=== PATIENT | male | born 1950 | race Caucasian/White ===

== ENCOUNTER 2018-02-25 09:35 | Day surgery (SDC) | payer MEDICARE, MEDICAID ==
[~2018-02-25 09:35] MED LIST: DOCU100C23 PO; FAMO-1 PO; GABA-532 PO; GEMF600T4 PO; GLIM4TAB79 PO; INSU100V12 SQ; LEVO100T46 PO; LISI40TA4 PO; METO100T14 PO; METO50TA17 PO; NOR5T PO; PARO-44 PO; PARO40TA PO; SPIR25TA5 PO; TRAM50TA2 PO; TRAZ-89 PO
[2018-02-25] MEDS ORDERED: LIDOcaine 2% 5ml jelly ONE (11:20)
[2018-02-25] MEDS ORDERED: MELA3TAB PO (13:22)
[2018-02-25] MEDS ORDERED: FLO0.4C PO (13:22)
[2018-02-25] MEDS ORDERED: SERT100T PO (13:22)
== END 2018-02-25 12:05 | disposition home or self-care (01) ==
LOC: WOUND CARE 09:35
PROVIDERS: ATTEND Surgery
DX: E11.622 Type 2 diabetes mellitus with other skin ulcer (principal); L97.822 Non-pressure chronic ulcer of other part of left lower leg with fat layer exposed; E11.65 Type 2 diabetes mellitus with hyperglycemia; I87.2 Venous insufficiency (chronic) (peripheral); B18.2 Chronic viral hepatitis C; F03.90 Unspecified dementia, unspecified severity, without behavioral disturbance, psychotic disturbance, mood disturbance, and anxiety
CPT/HCPCS: 11042; 11045; 36416; 82948; 93922; A6021; A6206; A6213

== ENCOUNTER 2018-03-03 10:24 | Day surgery (SDC) | payer MEDICARE, MEDICAID ==
[~2018-03-03 10:24] MED LIST changes: +FLO0.4C PO; +MELA3TAB PO; +SERT100T PO
[2018-03-03] MEDS ORDERED: LIDOcaine/PRILOcaine 5gm cream TP ONE (11:54)
== END 2018-03-03 12:45 | disposition home or self-care (01) ==
LOC: WOUND CARE 10:24
PROVIDERS: ATTEND Surgery
DX: E11.622 Type 2 diabetes mellitus with other skin ulcer (principal); L97.822 Non-pressure chronic ulcer of other part of left lower leg with fat layer exposed; E11.65 Type 2 diabetes mellitus with hyperglycemia; I87.2 Venous insufficiency (chronic) (peripheral); B18.2 Chronic viral hepatitis C; E78.5 Hyperlipidemia, unspecified; F03.90 Unspecified dementia, unspecified severity, without behavioral disturbance, psychotic disturbance, mood disturbance, and anxiety; F17.200 Nicotine dependence, unspecified, uncomplicated; F10.10 Alcohol abuse, uncomplicated
CPT/HCPCS: 11042; 36416; 82948; 87070; 87075; 87077; 87102; 87176; A6021; A6206; A6213

== ENCOUNTER 2018-03-19 09:54 | Day surgery (SDC) | payer MEDICARE, MEDICAID ==
[~2018-03-19 09:54] MED LIST changes: +DOCU-273 PO; -DOCU100C23 PO
[2018-03-19] MEDS ORDERED: LIDOcaine/PRILOcaine 5gm cream TP ONE (11:05)
== END 2018-03-19 11:55 | disposition home or self-care (01) ==
LOC: WOUND CARE 09:54
PROVIDERS: ATTEND Surgery
DX: E11.622 Type 2 diabetes mellitus with other skin ulcer (principal); L97.822 Non-pressure chronic ulcer of other part of left lower leg with fat layer exposed; E11.65 Type 2 diabetes mellitus with hyperglycemia; I87.2 Venous insufficiency (chronic) (peripheral); B18.2 Chronic viral hepatitis C; E78.5 Hyperlipidemia, unspecified; F03.90 Unspecified dementia, unspecified severity, without behavioral disturbance, psychotic disturbance, mood disturbance, and anxiety; F17.200 Nicotine dependence, unspecified, uncomplicated; F10.10 Alcohol abuse, uncomplicated
CPT/HCPCS: 15271; 36416; 82948; A6209; A6222; Q4131; A6250

== ENCOUNTER 2018-03-26 09:55 | Day surgery (SDC) | payer MEDICARE, MEDICAID | END 2018-03-26 11:06 | disposition home or self-care (01) | LOC: WOUND CARE 09:55 | PROVIDERS: ATTEND Surgery | DX: E11.622 Type 2 diabetes mellitus with other skin ulcer (principal); L97.822 Non-pressure chronic ulcer of other part of left lower leg with fat layer exposed; E11.65 Type 2 diabetes mellitus with hyperglycemia; I87.2 Venous insufficiency (chronic) (peripheral); B18.2 Chronic viral hepatitis C; E78.5 Hyperlipidemia, unspecified; F03.90 Unspecified dementia, unspecified severity, without behavioral disturbance, psychotic disturbance, mood disturbance, and anxiety; F17.200 Nicotine dependence, unspecified, uncomplicated; F10.10 Alcohol abuse, uncomplicated | CPT/HCPCS: 15271; 36416; 82948; A6209; A6222; A6446; Q4131; A6250 ==

== ENCOUNTER 2018-04-02 09:58 | Day surgery (SDC) | payer MEDICARE, MEDICAID ==
[2018-04-02] MEDS ORDERED: LIDOcaine/PRILOcaine 5gm cream TP ONE (10:44)
== END 2018-04-02 11:53 | disposition home or self-care (01) ==
LOC: WOUND CARE 09:58
PROVIDERS: ATTEND Surgery
DX: E11.622 Type 2 diabetes mellitus with other skin ulcer (principal); L97.822 Non-pressure chronic ulcer of other part of left lower leg with fat layer exposed; L97.221 Non-pressure chronic ulcer of left calf limited to breakdown of skin; E11.65 Type 2 diabetes mellitus with hyperglycemia; I87.2 Venous insufficiency (chronic) (peripheral); B18.2 Chronic viral hepatitis C; E78.5 Hyperlipidemia, unspecified; F03.90 Unspecified dementia, unspecified severity, without behavioral disturbance, psychotic disturbance, mood disturbance, and anxiety; F17.200 Nicotine dependence, unspecified, uncomplicated; F10.10 Alcohol abuse, uncomplicated
CPT/HCPCS: 15271; 36416; 82948; A6021; A6206; A6209; A6222; A6446; Q4131; A6250

== ENCOUNTER 2018-04-09 10:05 | Day surgery (SDC) | payer MEDICARE, MEDICAID ==
[2018-04-09] MEDS ORDERED: LIDOcaine/PRILOcaine 5gm cream TP ONE (11:11)
== END 2018-04-09 12:33 | disposition home or self-care (01) ==
LOC: WOUND CARE 10:05
PROVIDERS: ATTEND Surgery
DX: E11.622 Type 2 diabetes mellitus with other skin ulcer (principal); L97.821 Non-pressure chronic ulcer of other part of left lower leg limited to breakdown of skin; L97.221 Non-pressure chronic ulcer of left calf limited to breakdown of skin; E11.65 Type 2 diabetes mellitus with hyperglycemia; I87.2 Venous insufficiency (chronic) (peripheral); B18.2 Chronic viral hepatitis C; E78.5 Hyperlipidemia, unspecified; F03.90 Unspecified dementia, unspecified severity, without behavioral disturbance, psychotic disturbance, mood disturbance, and anxiety; F17.200 Nicotine dependence, unspecified, uncomplicated; F10.10 Alcohol abuse, uncomplicated
CPT/HCPCS: 36416; 82948; 97597; A6021; A6209; A6222; A6446

== ENCOUNTER 2018-04-16 10:11 | Day surgery (SDC) | payer MEDICARE, MEDICAID ==
[2018-04-16] MEDS ORDERED: LIDOcaine/PRILOcaine 5gm cream TP ONE (10:38)
== END 2018-04-16 11:16 | disposition home or self-care (01) ==
LOC: WOUND CARE 10:11
PROVIDERS: ATTEND Surgery
DX: E11.622 Type 2 diabetes mellitus with other skin ulcer (principal); L97.822 Non-pressure chronic ulcer of other part of left lower leg with fat layer exposed; L97.221 Non-pressure chronic ulcer of left calf limited to breakdown of skin; E11.65 Type 2 diabetes mellitus with hyperglycemia; I87.2 Venous insufficiency (chronic) (peripheral); B18.2 Chronic viral hepatitis C; E78.5 Hyperlipidemia, unspecified; F03.90 Unspecified dementia, unspecified severity, without behavioral disturbance, psychotic disturbance, mood disturbance, and anxiety; F17.200 Nicotine dependence, unspecified, uncomplicated; F10.10 Alcohol abuse, uncomplicated
CPT/HCPCS: 15271; 36416; 82948; A6021; A6206; A6209; A6222; A6446; Q4131; A6250

== ENCOUNTER 2018-04-23 09:55 | Day surgery (SDC) | payer MEDICARE, MEDICAID | END 2018-04-23 11:08 | disposition home or self-care (01) | LOC: WOUND CARE 09:55 | PROVIDERS: ATTEND Surgery | DX: E11.622 Type 2 diabetes mellitus with other skin ulcer (principal); L97.822 Non-pressure chronic ulcer of other part of left lower leg with fat layer exposed; L97.221 Non-pressure chronic ulcer of left calf limited to breakdown of skin; E11.65 Type 2 diabetes mellitus with hyperglycemia; I87.2 Venous insufficiency (chronic) (peripheral); B18.2 Chronic viral hepatitis C; E78.5 Hyperlipidemia, unspecified; F03.90 Unspecified dementia, unspecified severity, without behavioral disturbance, psychotic disturbance, mood disturbance, and anxiety; F17.200 Nicotine dependence, unspecified, uncomplicated; F10.10 Alcohol abuse, uncomplicated | CPT/HCPCS: 36416; 82948; 97597; A6021; A6206; A6209; A6446 ==

== ENCOUNTER 2018-04-30 10:04 | Day surgery (SDC) | payer MEDICARE, MEDICAID ==
[2018-04-30] MEDS ORDERED: LIDOcaine/PRILOcaine 5gm cream TP ONE (10:43)
== END 2018-04-30 11:57 | disposition home or self-care (01) ==
LOC: WOUND CARE 10:04
PROVIDERS: ATTEND Surgery
DX: E11.622 Type 2 diabetes mellitus with other skin ulcer (principal); L97.822 Non-pressure chronic ulcer of other part of left lower leg with fat layer exposed; L97.221 Non-pressure chronic ulcer of left calf limited to breakdown of skin; E11.65 Type 2 diabetes mellitus with hyperglycemia; I87.2 Venous insufficiency (chronic) (peripheral); B18.2 Chronic viral hepatitis C; E78.5 Hyperlipidemia, unspecified; F03.90 Unspecified dementia, unspecified severity, without behavioral disturbance, psychotic disturbance, mood disturbance, and anxiety; F17.200 Nicotine dependence, unspecified, uncomplicated; F10.10 Alcohol abuse, uncomplicated
CPT/HCPCS: 15271; 36416; 82948; A6209; A6222; Q4131; A6250

== ENCOUNTER 2018-05-07 10:00 | Outpatient (CLI) | payer MEDICARE, MEDICAID ==
[2018-05-07] MEDS ORDERED: LIDOcaine/PRILOcaine 5gm cream TP ONE (10:30)
== END 2018-05-07 11:33 | disposition home or self-care (01) ==
LOC: WOUND CARE 10:00 → EDSTATUS 10:00 → WOUND CARE 11:33
PROVIDERS: ATTEND Surgery
DX: E11.622 Type 2 diabetes mellitus with other skin ulcer (principal); L97.822 Non-pressure chronic ulcer of other part of left lower leg with fat layer exposed; L97.221 Non-pressure chronic ulcer of left calf limited to breakdown of skin; E11.65 Type 2 diabetes mellitus with hyperglycemia; I87.2 Venous insufficiency (chronic) (peripheral); B18.2 Chronic viral hepatitis C; E78.5 Hyperlipidemia, unspecified; F03.90 Unspecified dementia, unspecified severity, without behavioral disturbance, psychotic disturbance, mood disturbance, and anxiety; F17.200 Nicotine dependence, unspecified, uncomplicated; F10.10 Alcohol abuse, uncomplicated
CPT/HCPCS: 36416; 82948; 99215; A6021; A6206; A6213; A6446

== ENCOUNTER 2018-05-16 10:07 | Day surgery (SDC) | payer MEDICARE, MEDICAID ==
[2018-05-16] MEDS ORDERED: LIDOcaine/PRILOcaine 5gm cream TP ONE (11:07)
== END 2018-05-16 11:52 | disposition home or self-care (01) ==
LOC: WOUND CARE 10:07
PROVIDERS: ATTEND Surgery
DX: E11.622 Type 2 diabetes mellitus with other skin ulcer (principal); L97.822 Non-pressure chronic ulcer of other part of left lower leg with fat layer exposed; E11.65 Type 2 diabetes mellitus with hyperglycemia; I87.2 Venous insufficiency (chronic) (peripheral); B18.2 Chronic viral hepatitis C; E78.5 Hyperlipidemia, unspecified; F03.90 Unspecified dementia, unspecified severity, without behavioral disturbance, psychotic disturbance, mood disturbance, and anxiety; F17.200 Nicotine dependence, unspecified, uncomplicated; F10.10 Alcohol abuse, uncomplicated
CPT/HCPCS: 36416; 82948; 97597; A6021; A6206; A6213

== ENCOUNTER 2018-05-21 09:55 | Day surgery (SDC) | payer MEDICARE, MEDICAID ==
[2018-05-21] MEDS ORDERED: LIDOcaine/PRILOcaine 5gm cream TP ONE (10:34)
== END 2018-05-21 11:26 | disposition home or self-care (01) ==
LOC: WOUND CARE 09:55
PROVIDERS: ATTEND Surgery
DX: E11.622 Type 2 diabetes mellitus with other skin ulcer (principal); L97.822 Non-pressure chronic ulcer of other part of left lower leg with fat layer exposed; E11.65 Type 2 diabetes mellitus with hyperglycemia; I87.2 Venous insufficiency (chronic) (peripheral); B18.2 Chronic viral hepatitis C; E78.5 Hyperlipidemia, unspecified; F03.90 Unspecified dementia, unspecified severity, without behavioral disturbance, psychotic disturbance, mood disturbance, and anxiety; F17.200 Nicotine dependence, unspecified, uncomplicated; F10.10 Alcohol abuse, uncomplicated
CPT/HCPCS: 15271; 36416; 82948; A6209; A6222; Q4131; A6250

== ENCOUNTER 2018-05-28 10:08 | Outpatient (CLI) | payer MEDICARE, MEDICAID | END 2018-05-28 11:08 | disposition home or self-care (01) | LOC: WOUND CARE 10:08 | PROVIDERS: ATTEND Surgery | DX: E11.622 Type 2 diabetes mellitus with other skin ulcer (principal); L97.822 Non-pressure chronic ulcer of other part of left lower leg with fat layer exposed; E11.65 Type 2 diabetes mellitus with hyperglycemia; I87.2 Venous insufficiency (chronic) (peripheral); B18.2 Chronic viral hepatitis C; E78.5 Hyperlipidemia, unspecified; F03.90 Unspecified dementia, unspecified severity, without behavioral disturbance, psychotic disturbance, mood disturbance, and anxiety; F17.200 Nicotine dependence, unspecified, uncomplicated; F10.10 Alcohol abuse, uncomplicated | CPT/HCPCS: 36416; 82948; 99215; A6209; A6021; A6206 ==

== ENCOUNTER 2018-06-04 09:52 | Day surgery (SDC) | payer MEDICARE, MEDICAID ==
[2018-06-04] MEDS ORDERED: LIDOcaine/PRILOcaine 5gm cream TP ONE (11:30)
== END 2018-06-04 12:06 | disposition home or self-care (01) ==
LOC: WOUND CARE 09:52
PROVIDERS: ATTEND Surgery
DX: E11.622 Type 2 diabetes mellitus with other skin ulcer (principal); L97.822 Non-pressure chronic ulcer of other part of left lower leg with fat layer exposed; E11.65 Type 2 diabetes mellitus with hyperglycemia; I87.2 Venous insufficiency (chronic) (peripheral); B18.2 Chronic viral hepatitis C; E78.5 Hyperlipidemia, unspecified; F03.90 Unspecified dementia, unspecified severity, without behavioral disturbance, psychotic disturbance, mood disturbance, and anxiety; F17.200 Nicotine dependence, unspecified, uncomplicated; F10.10 Alcohol abuse, uncomplicated
CPT/HCPCS: 17250; 36416; 82948; 97597; A6021; A6206; A6213

== ENCOUNTER 2018-06-11 09:45 | Day surgery (SDC) | payer MEDICARE, MEDICAID ==
[2018-06-11] MEDS ORDERED: LIDOcaine/PRILOcaine 5gm cream TP ONE (11:37)
== END 2018-06-11 12:10 | disposition home or self-care (01) ==
LOC: WOUND CARE 09:45
PROVIDERS: ATTEND Surgery
DX: E11.622 Type 2 diabetes mellitus with other skin ulcer (principal); L97.822 Non-pressure chronic ulcer of other part of left lower leg with fat layer exposed; E11.65 Type 2 diabetes mellitus with hyperglycemia; I87.2 Venous insufficiency (chronic) (peripheral); B18.2 Chronic viral hepatitis C; E78.5 Hyperlipidemia, unspecified; F03.90 Unspecified dementia, unspecified severity, without behavioral disturbance, psychotic disturbance, mood disturbance, and anxiety; F17.200 Nicotine dependence, unspecified, uncomplicated; F10.10 Alcohol abuse, uncomplicated
CPT/HCPCS: 17250; A6209; A6021; A6206

== ENCOUNTER 2018-06-25 09:55 | Outpatient (CLI) | payer MEDICARE, MEDICAID ==
[~2018-06-25 09:55] MED LIST changes: -GEMF600T4 PO; +GEMF600T89 PO
== END 2018-06-25 12:00 | disposition home or self-care (01) ==
LOC: WOUND CARE 09:55 → EDSTATUS 10:00 → WOUND CARE 12:00
PROVIDERS: ATTEND Surgery
DX: E11.622 Type 2 diabetes mellitus with other skin ulcer (principal); L97.822 Non-pressure chronic ulcer of other part of left lower leg with fat layer exposed; E11.65 Type 2 diabetes mellitus with hyperglycemia; I87.2 Venous insufficiency (chronic) (peripheral); B18.2 Chronic viral hepatitis C; E78.5 Hyperlipidemia, unspecified; F03.90 Unspecified dementia, unspecified severity, without behavioral disturbance, psychotic disturbance, mood disturbance, and anxiety; F17.200 Nicotine dependence, unspecified, uncomplicated; F10.10 Alcohol abuse, uncomplicated
CPT/HCPCS: 36416; 82948; A6212; G0463

== ENCOUNTER 2018-10-23 11:05 | Emergency (ER) | payer MEDICARE, MEDICAID ==
[~2018-10-23] VITALS: Ht 208.3 cm; Wt 86.4 kg
[2018-10-23 11:17] VITALS: BP 127/73
[2018-10-27] MEDS ORDERED: INSU100V12 SQ (08:55)
[2018-10-27] MEDS ORDERED: LEVO150T PO (08:55)
[2018-10-27] MEDS ORDERED: ASPI-1265 PO (09:19)
[2018-10-27] MEDS ORDERED: CALC1CAP4 PO (09:19)
[2018-10-27] MEDS ORDERED: SERT100T PO (09:19)
[2018-10-27] MEDS ORDERED: LACT10SO PO (09:19)
[2018-10-27] MEDS ORDERED: MULT-1085 PO (09:19)
[2018-10-27] MEDS ORDERED: ARIP5TAB4 PO (09:19)
[2018-10-27] MEDS ORDERED: CHLO25CA10 PO (09:19)
[2018-10-27] MEDS ORDERED: CHOL2000 PO (09:19)
== END 2018-10-23 12:41 | disposition home or self-care (01) ==
LOC: ER 11:06
DX: M25.561 Pain in right knee (principal); M25.461 Effusion, right knee; I10 Essential (primary) hypertension; E11.9 Type 2 diabetes mellitus without complications; F12.90 Cannabis use, unspecified, uncomplicated; Z90.49 Acquired absence of other specified parts of digestive tract; Z98.890 Other specified postprocedural states; Z88.5 Allergy status to narcotic agent; Z79.4 Long term (current) use of insulin; Z79.899 Other long term (current) drug therapy; W01.0XXA Fall on same level from slipping, tripping and stumbling without subsequent striking against object, initial encounter; Y93.89 Activity, other specified; Y92.89 Other specified places as the place of occurrence of the external cause; Y99.8 Other external cause status
CPT/HCPCS: 73564; 99284

== ENCOUNTER 2018-10-27 07:24 | Inpatient (IN) | payer MEDICARE, MEDICAID | END 2018-11-01 12:30 | LOC: ORTHO 4S 10-30 18:54 → ER 07:24 → ORTHO 4S 13:05 | PROC: 0QS606Z Reposition Right Upper Femur with Intramedullary Internal Fixation Device, Open Approach (ICD-10-PCS; principal; 2018-10-28 11:37) | DX: S72.044A Nondisplaced fracture of base of neck of right femur, initial encounter for closed fracture (principal); N17.0 Acute kidney failure with tubular necrosis; E11.65 Type 2 diabetes mellitus with hyperglycemia ==

== ENCOUNTER 2018-11-22 17:11 | Inpatient (IN) | payer MEDICARE, MEDICAID | END 2018-11-25 13:25 | LOC: ER 17:11 → ORTHO 4S 22:09 | PROC: 0QS706Z Reposition Left Upper Femur with Intramedullary Internal Fixation Device, Open Approach (ICD-10-PCS; principal; 2018-11-23 08:14) | DX: S72.042A Displaced fracture of base of neck of left femur, initial encounter for closed fracture (principal); E43 Unspecified severe protein-calorie malnutrition; Z68.1 Body mass index [BMI] 19.9 or less, adult ==

== ENCOUNTER 2019-02-19 10:30 | Day surgery (SDC) | payer MEDICARE, MEDICAID ==
[~2019-02-19 10:30] MED LIST changes: +ARIP5TAB4 PO; +ASPI-1265 PO; +CALC1CAP4 PO; +CHOL2000 PO; +GLIM4TAB4 PO; -GLIM4TAB79 PO; +LACT10SO PO; -LEVO100T46 PO; +LEVO150T PO; -MELA3TAB PO; +MELA3TAB64 PO; +MULT-1085 PO; -PARO-44 PO; -PARO40TA PO; -TRAM50TA2 PO
[2019-02-19] MEDS ORDERED: LIDOcaine 2% 5ml jelly ONE ×2 (12:40→12:42)
[2019-02-19 13:22] LABS: BASOPHILS % (AUTO) 0.4 % (0-1); EOSINOPHILS # (AUTO) 0.1 X10'3 (0-0.9); EOSINOPHILS % (AUTO) 2.2 % (0-6); HEMATOCRIT 35.5 % (42.0-52.0); HEMOGLOBIN 11.8 g/dl (14.0-17.9); LYMPHOCYTES # (AUTO) 0.9 X10'3 (1.1-4.8); LYMPHOCYTES % (AUTO) 17.4 % (21-51); MEAN CORPUSCULAR HEMOGLOBIN 30.9 PG (27.0-31.0); MEAN CORPUSCULAR HGB CONC 33.2 g/dL (33.0-36.5); MEAN CORPUSCULAR VOLUME 93.1 FL (78-98); MEAN PLATELET VOLUME 8.9 FL (7.4-10.4); MONOCYTES # (AUTO) 0.4 X10'3 (0-0.9); MONOCYTES % (AUTO) 8.8 % (2-12); NEUTROPHILS # (AUTO) 3.5 X10'3 (1.8-7.7); NEUTROPHILS % (AUTO) 71.2 % (42-75); PLATELET COUNT 117 X10'3 (140-440); RED BLOOD COUNT 3.81 X10'6 (4.70-6.10); RED CELL DISTRIBUTION WIDTH 15.6 % (11.5-14.5); WHITE BLOOD COUNT 4.9 X10'3 (4.5-11.0)
[2019-02-19 13:41] LABS: ALANINE AMINOTRANSFERASE 26 U/L (12-78); ALBUMIN 2.9 G/DL (3.4-5.0); ALBUMIN/GLOBULIN RATIO 0.7 (1.1-1.5); ALKALINE PHOSPHATASE 187 IU/L (46-116); ANION GAP 9 (8-16); ASPARTATE AMINO TRANSFERASE 33 U/L (10-37); BILIRUBIN,TOTAL 0.5 MG/DL (0.1-1.0); BLOOD UREA NITROGEN 28 MG/DL (7-18); BUN/CREATININE RATIO 24.8 (5.4-32.0); CALCIUM 8.7 MG/DL (8.5-10.1); CHLORIDE 108 MMOL/L (99-107); CREATININE 1.13 MG/DL (0.60-1.10); GLUCOSE 159 MG/DL (70-104); POTASSIUM 3.6 MMOL/L (3.5-5.1); SODIUM 141 MMOL/L (135-145); TOTAL CARBON DIOXIDE 23.6 MMOL/L (24-32); TOTAL PROTEIN 7.2 G/DL (6.4-8.2); eGFR 65 ML/MIN
== END 2019-02-19 14:45 | disposition home or self-care (01) ==
LOC: WOUND CARE 10:30
PROVIDERS: ATTEND Surgery
DX: E11.622 Type 2 diabetes mellitus with other skin ulcer (principal); L97.822 Non-pressure chronic ulcer of other part of left lower leg with fat layer exposed; E11.65 Type 2 diabetes mellitus with hyperglycemia; I87.2 Venous insufficiency (chronic) (peripheral); B18.2 Chronic viral hepatitis C; E78.5 Hyperlipidemia, unspecified; F03.90 Unspecified dementia, unspecified severity, without behavioral disturbance, psychotic disturbance, mood disturbance, and anxiety; F17.200 Nicotine dependence, unspecified, uncomplicated; F10.10 Alcohol abuse, uncomplicated
CPT/HCPCS: 36415; 36416; 80053; 82948; 85025; 97597; A6209; A4663; A6021; A6154; A6446

== ENCOUNTER 2019-03-04 10:21 | Day surgery (SDC) | payer MEDICARE, MEDICAID ==
[2019-03-04] MEDS ORDERED: LIDOcaine 2% 5ml jelly ONE (11:16)
== END 2019-03-04 12:17 | disposition home or self-care (01) ==
LOC: WOUND CARE 10:21
PROVIDERS: ATTEND Surgery
DX: E11.621 Type 2 diabetes mellitus with foot ulcer (principal); L89.613 Pressure ulcer of right heel, stage 3; L97.411 Non-pressure chronic ulcer of right heel and midfoot limited to breakdown of skin; E11.65 Type 2 diabetes mellitus with hyperglycemia; I87.2 Venous insufficiency (chronic) (peripheral); B18.2 Chronic viral hepatitis C; E78.5 Hyperlipidemia, unspecified; F03.90 Unspecified dementia, unspecified severity, without behavioral disturbance, psychotic disturbance, mood disturbance, and anxiety; F17.200 Nicotine dependence, unspecified, uncomplicated; F10.10 Alcohol abuse, uncomplicated
CPT/HCPCS: 82948; 97597; A4663; A6021; A6154; A6212; A6446

== ENCOUNTER 2019-03-12 10:30 | Day surgery (SDC) | payer MEDICARE, MEDICAID ==
[2019-03-12] MEDS ORDERED: LIDOcaine 2% 5ml jelly ONE (12:06)
== END 2019-03-12 12:49 | disposition home or self-care (01) ==
LOC: WOUND CARE 10:30
PROVIDERS: ATTEND Surgery
DX: E11.621 Type 2 diabetes mellitus with foot ulcer (principal); L89.613 Pressure ulcer of right heel, stage 3; L97.411 Non-pressure chronic ulcer of right heel and midfoot limited to breakdown of skin; E11.65 Type 2 diabetes mellitus with hyperglycemia; I87.2 Venous insufficiency (chronic) (peripheral); B18.2 Chronic viral hepatitis C; E78.5 Hyperlipidemia, unspecified; F03.90 Unspecified dementia, unspecified severity, without behavioral disturbance, psychotic disturbance, mood disturbance, and anxiety; F17.200 Nicotine dependence, unspecified, uncomplicated; F10.10 Alcohol abuse, uncomplicated
CPT/HCPCS: 97597; A6209; A4663; A6021; A6154; A6446

== ENCOUNTER 2019-03-19 10:30 | Day surgery (SDC) | payer MEDICARE, MEDICAID | END 2019-03-19 12:36 | disposition home or self-care (01) | LOC: WOUND CARE 10:30 | PROVIDERS: ATTEND Surgery | DX: E11.621 Type 2 diabetes mellitus with foot ulcer (principal); L89.613 Pressure ulcer of right heel, stage 3; L97.411 Non-pressure chronic ulcer of right heel and midfoot limited to breakdown of skin; E11.65 Type 2 diabetes mellitus with hyperglycemia; E11.40 Type 2 diabetes mellitus with diabetic neuropathy, unspecified; I87.2 Venous insufficiency (chronic) (peripheral); B18.2 Chronic viral hepatitis C; E78.5 Hyperlipidemia, unspecified; F03.90 Unspecified dementia, unspecified severity, without behavioral disturbance, psychotic disturbance, mood disturbance, and anxiety; F17.200 Nicotine dependence, unspecified, uncomplicated; F10.10 Alcohol abuse, uncomplicated | CPT/HCPCS: 36416; 82948; 97597; A4663; A6021; A6154; A6212; A6446 ==

== ENCOUNTER 2019-03-26 10:25 | Day surgery (SDC) | payer MEDICARE, MEDICAID | END 2019-03-26 12:11 | disposition home or self-care (01) | LOC: WOUND CARE 10:25 | PROVIDERS: ATTEND Surgery | DX: E11.621 Type 2 diabetes mellitus with foot ulcer (principal); L89.613 Pressure ulcer of right heel, stage 3; L97.411 Non-pressure chronic ulcer of right heel and midfoot limited to breakdown of skin; E11.65 Type 2 diabetes mellitus with hyperglycemia; E11.40 Type 2 diabetes mellitus with diabetic neuropathy, unspecified; I87.2 Venous insufficiency (chronic) (peripheral); B18.2 Chronic viral hepatitis C; E78.5 Hyperlipidemia, unspecified; F03.90 Unspecified dementia, unspecified severity, without behavioral disturbance, psychotic disturbance, mood disturbance, and anxiety; F17.200 Nicotine dependence, unspecified, uncomplicated; F10.10 Alcohol abuse, uncomplicated | CPT/HCPCS: 36416; 82948; 97597; A4663; A6021; A6154; A6212; A6446 ==

== ENCOUNTER 2019-04-02 10:40 | Day surgery (SDC) | payer MEDICARE, MEDICAID ==
[2019-04-02] MEDS ORDERED: LIDOcaine 2% 5ml jelly ONE (11:51)
== END 2019-04-02 12:48 | disposition home or self-care (01) ==
LOC: WOUND CARE 10:40
PROVIDERS: ATTEND Surgery
DX: E11.621 Type 2 diabetes mellitus with foot ulcer (principal); L89.613 Pressure ulcer of right heel, stage 3; L97.411 Non-pressure chronic ulcer of right heel and midfoot limited to breakdown of skin; E11.65 Type 2 diabetes mellitus with hyperglycemia; E11.40 Type 2 diabetes mellitus with diabetic neuropathy, unspecified; I87.2 Venous insufficiency (chronic) (peripheral); B18.2 Chronic viral hepatitis C; E78.5 Hyperlipidemia, unspecified; F03.90 Unspecified dementia, unspecified severity, without behavioral disturbance, psychotic disturbance, mood disturbance, and anxiety; F17.200 Nicotine dependence, unspecified, uncomplicated; F10.10 Alcohol abuse, uncomplicated
CPT/HCPCS: 36416; 82948; 97597; A4663; A6021; A6154; A6212; A6446

== ENCOUNTER 2019-04-23 10:30 | Outpatient (CLI) | payer MEDICARE, MEDICAID | END 2019-04-23 11:57 | disposition home or self-care (01) | LOC: EDSTATUS 10:30 → WOUND CARE 10:30 | PROVIDERS: ATTEND Surgery | DX: E11.621 Type 2 diabetes mellitus with foot ulcer (principal); L89.613 Pressure ulcer of right heel, stage 3; L97.411 Non-pressure chronic ulcer of right heel and midfoot limited to breakdown of skin; E11.65 Type 2 diabetes mellitus with hyperglycemia; E11.40 Type 2 diabetes mellitus with diabetic neuropathy, unspecified; I87.2 Venous insufficiency (chronic) (peripheral); B18.2 Chronic viral hepatitis C; E78.5 Hyperlipidemia, unspecified; F03.90 Unspecified dementia, unspecified severity, without behavioral disturbance, psychotic disturbance, mood disturbance, and anxiety; F17.200 Nicotine dependence, unspecified, uncomplicated; F10.10 Alcohol abuse, uncomplicated | CPT/HCPCS: A4663; A6212; G0463 ==

== ENCOUNTER 2019-06-09 14:29 | Inpatient (IN) | payer MEDICARE, MEDICAID ==
[~2019-06-09] VITALS: Ht 180.3 cm; Wt 82.0 kg
[~2019-06-09 14:29] MED LIST changes: +ARIP5TAB14 PO; -ARIP5TAB4 PO
[2019-06-09] MEDS ORDERED: normal saline 1000ML IV soln IVB ONE (14:35)
[2019-06-09 14:56] LABS: BASOPHILS % (AUTO) 0.3 % (0-1); EOSINOPHILS # (AUTO) 0.1 X10'3 (0-0.9); EOSINOPHILS % (AUTO) 1.9 % (0-6); HEMATOCRIT 36.2 % (42.0-52.0); HEMOGLOBIN 12.2 g/dl (14.0-17.9); LYMPHOCYTES # (AUTO) 0.9 X10'3 (1.1-4.8); LYMPHOCYTES % (AUTO) 15.1 % (21-51); MEAN CORPUSCULAR HEMOGLOBIN 32.4 PG (27.0-31.0); MEAN CORPUSCULAR HGB CONC 33.6 g/dL (33.0-36.5); MEAN CORPUSCULAR VOLUME 96.4 FL (78-98); MEAN PLATELET VOLUME 9.6 FL (7.4-10.4); MONOCYTES # (AUTO) 0.5 X10'3 (0-0.9); MONOCYTES % (AUTO) 7.7 % (2-12); NEUTROPHILS # (AUTO) 4.7 X10'3 (1.8-7.7); PLATELET COUNT 112 X10'3 (140-440); RED BLOOD COUNT 3.76 X10'6 (4.70-6.10); RED CELL DISTRIBUTION WIDTH 14.3 % (11.5-14.5); WHITE BLOOD COUNT 6.2 X10'3 (4.5-11.0)
--- NOTE | 2019-06-09 15:22 | NUR ---
CHRISS DENISE AT BEDSIDE.
[2019-06-09] MEDS ORDERED: CEPH250T PO (15:32)
[2019-06-09 15:53] LABS: ALANINE AMINOTRANSFERASE 21 U/L (12-78); ALBUMIN 3.3 G/DL (3.4-5.0); ALBUMIN/GLOBULIN RATIO 0.7 (1.1-1.5); ALKALINE PHOSPHATASE 156 IU/L (46-116); ANION GAP 12 (8-16); ASPARTATE AMINO TRANSFERASE 26 U/L (10-37); BILIRUBIN,TOTAL 0.6 MG/DL (0.1-1.0); BLOOD UREA NITROGEN 78 MG/DL (7-18); CALCIUM 9.1 MG/DL (8.5-10.1); CHLORIDE 102 MMOL/L (99-107); CREATININE 2.44 MG/DL (0.60-1.10); GLUCOSE 201 MG/DL (70-104); POTASSIUM 4.5 MMOL/L (3.5-5.1); SODIUM 136 MMOL/L (135-145); TOTAL CARBON DIOXIDE 21.9 MMOL/L (24-32); TOTAL PROTEIN 7.8 G/DL (6.4-8.2); eGFR 27 ML/MIN
[2019-06-09] MEDS ORDERED: lactulose 20gm/30ml cup PO ONE (15:55)
[2019-06-09] MEDS ORDERED: CefTRIAXone 2gm/D5W 50ml 50 ML IV ONE (16:10)
[2019-06-09] MEDS ORDERED: normal saline 1000ML IV soln IV ONE (16:10)
[2019-06-09] MEDS ORDERED: CHLO25TA2 PO (16:46)
[2019-06-09] MEDS ORDERED: ARIP5TAB60 PO (16:46)
[2019-06-09] MEDS ORDERED: RIFA550T PO (16:46)
[2019-06-09] MEDS ORDERED: FURO40TA4 PO (16:46)
[2019-06-09] MEDS ORDERED: MEMA5TAB42 PO (16:46)
[2019-06-09] MEDS ORDERED: AMLO10TA13 PO (16:46)
[2019-06-09] MEDS ORDERED: SPIR100T5 PO (16:52)
[2019-06-09] MEDS ORDERED: LEVO200T8 PO (16:52)
[2019-06-09] MEDS ORDERED: LACT10SO PO (17:35)
[2019-06-09] MEDS ORDERED: potassium CL 10mEq/100ml bag 100 ML IV PRN ×2 (18:00)
[2019-06-09] MEDS ORDERED: ondansetron/PF 4mg/2ml inj IV PRN (18:00)
[2019-06-09] MEDS ORDERED: dextrose 50%-water 50ml dispensing syringe IV PRN ×2 (18:00)
[2019-06-09] MEDS ORDERED: magnesium 2GM in 50ml NS 50 ML IV PRN (18:00)
[2019-06-09] MEDS ORDERED: magnesium 4gm in 100ml NS 100 ML IV PRN (18:00)
[2019-06-09] MEDS ORDERED: mag hydrox/Alum hydrox/simeth 30ml oral suspension PO PRN (18:00)
[2019-06-09] MEDS ORDERED: potassium Cl 20 mEq SR tablet PO PRN ×2 (18:00)
[2019-06-09] MEDS ORDERED: glucagon, human recombinant 1mg kit SUBCUT PRN (18:00)
[2019-06-09] MEDS ORDERED: MESSAGE TO PHARMACY PO ONE (18:00)
[2019-06-09] MEDS ORDERED: magnesium Cl slow-release 64mg tablet PO PRN (18:00)
[2019-06-09] MEDS ORDERED: dextrose ORAL solution 15 GM/59 ML bottle PO PRN ×2 (18:00)
--- NOTE | 2019-06-09 18:22 | NUR ---
JOHNNA [phone]
--- NOTE | 2019-06-09 18:24 | NUR ---
PT SLEEPING QUIETLY
[2019-06-09 18:53] LABS: HEMOGLOBIN A1C 6.5 % (4.5-6.2)
[2019-06-09] MEDS: normal saline 1000ml 1,000 ML IV SCH (19:01)
[2019-06-09] MEDS: gemfibrozil 600mg tablet PO SCH (20:00)
[2019-06-09] MEDS: famotidine 20mg tablet PO SCH (20:32)
[2019-06-09] MEDS: sertraline 50mg tablet PO SCH (20:32)
[2019-06-09] MEDS: gabapentin 300mg capsule PO SCH (20:32)
[2019-06-09] MEDS: memantine 5mg tablet PO SCH (20:32)
[2019-06-09] MEDS: spironolactone 25 MG tablet PO SCH (20:32)
[2019-06-09] MEDS: insulin glargine (Lantus) pen - multi-dose SQ SCH (20:44)
[2019-06-09 20:50] VITALS: BP 153/67
--- NOTE | 2019-06-09 21:30 | NUR ---
Patient in room [facility]. I have received report from Calista KIM RN, and had the opportunity to ask questions and assume patient care. Addendum: 06/09/19 at 2131 by Carlene Hartmann RN Amended: Links added.
[2019-06-10 00:36] VITALS: BP 136/71
[2019-06-10] MEDS: normal saline 1000ml 1,000 ML IV SCH (05:05)
[2019-06-10 05:35] LABS: BASOPHILS % (AUTO) 0.3 % (0-1); EOSINOPHILS # (AUTO) 0.1 X10'3 (0-0.9); HEMATOCRIT 36.2 % (42.0-52.0); HEMOGLOBIN 12.4 g/dl (14.0-17.9); LYMPHOCYTES # (AUTO) 0.8 X10'3 (1.1-4.8); LYMPHOCYTES % (AUTO) 15.7 % (21-51); MEAN CORPUSCULAR HEMOGLOBIN 32.8 PG (27.0-31.0); MEAN CORPUSCULAR HGB CONC 34.1 g/dL (33.0-36.5); MEAN PLATELET VOLUME 9.6 FL (7.4-10.4); MONOCYTES # (AUTO) 0.4 X10'3 (0-0.9); NEUTROPHILS # (AUTO) 3.6 X10'3 (1.8-7.7); PLATELET COUNT 101 X10'3 (140-440); RED BLOOD COUNT 3.77 X10'6 (4.70-6.10); RED CELL DISTRIBUTION WIDTH 14.6 % (11.5-14.5); WHITE BLOOD COUNT 4.9 X10'3 (4.5-11.0)
[2019-06-10 05:53] LABS: ALANINE AMINOTRANSFERASE 19 U/L (12-78); ALBUMIN 3.1 G/DL (3.4-5.0); ALBUMIN/GLOBULIN RATIO 0.7 (1.1-1.5); ALKALINE PHOSPHATASE 154 IU/L (46-116); ANION GAP 14 (8-16); ASPARTATE AMINO TRANSFERASE 24 U/L (10-37); BILIRUBIN,TOTAL 0.4 MG/DL (0.1-1.0); BLOOD UREA NITROGEN 61 MG/DL (7-18); BUN/CREATININE RATIO 34.1 (5.4-32.0); CALCIUM 9.1 MG/DL (8.5-10.1); CHLORIDE 108 MMOL/L (99-107); CREATININE 1.79 MG/DL (0.60-1.10); GLUCOSE 138 MG/DL (70-104); MAGNESIUM 1.8 MG/DL (1.5-2.4); POTASSIUM 3.7 MMOL/L (3.5-5.1); SODIUM 142 MMOL/L (135-145); TOTAL CARBON DIOXIDE 20.2 MMOL/L (24-32); TOTAL PROTEIN 7.6 G/DL (6.4-8.2); eGFR 38 ML/MIN
--- NOTE | 2019-06-10 06:31 | NUR ---
Problems reprioritized. Patient report given, questions answered & plan of care reviewed with WOJCIECH Louise. Addendum: 06/10/19 at 0632 by Carlene Hartmann RN Amended: Links added.
--- NOTE | 2019-06-10 06:33 | NUR ---
Patient in room [facility]. I have received report from WOJCIECH Concepcion and had the opportunity to ask questions and assume patient care.
[2019-06-10 07:30] VITALS: BP 133/60
[2019-06-10] MEDS: K and/or MAG REPLACEMENT MC SCH (08:00)
[2019-06-10] MEDS: lactulose 20gm/30ml cup PO SCH ×4 (08:00→19:57)
[2019-06-10] MEDS: gabapentin 300mg capsule PO SCH ×2 (09:34→19:53)
[2019-06-10] MEDS: famotidine 20mg tablet PO SCH ×2 (09:34→19:54)
[2019-06-10] MEDS: spironolactone 25 MG tablet PO SCH ×2 (09:34→19:53)
[2019-06-10] MEDS: tamsulosin 0.4mg capsule PO SCH (09:34)
[2019-06-10] MEDS: aripiprazole 5mg tablet PO SCH (09:34)
[2019-06-10] MEDS: memantine 5mg tablet PO SCH ×2 (09:34→19:53)
[2019-06-10] MEDS: levoTHYROXINE 100mcg tablet PO SCH (09:35)
[2019-06-10 11:11] VITALS: BP 160/64
[2019-06-10] MEDS: nystatin 15 GM powder TP SCH ×2 (12:06→22:29)
[2019-06-10] MEDS: rifaximin 550mg tablet PO SCH (12:06)
[2019-06-10] MEDS: gemfibrozil 600mg tablet PO SCH ×2 (12:07→19:53)
[2019-06-10] MEDS: insulin Lispro (HumaLOG) vial - multi-dose SQ SCH (13:45)
--- NOTE | 2019-06-10 14:57 | NUR ---
Student Medication Administration: For this medication-pass time frame, all medication were reviewed, dispensed, administered and documented per hospital policy by SIMA STUDENT NURSE.
--- NOTE | 2019-06-10 18:33 | NUR ---
Problems reprioritized. Patient report given, questions answered & plan of care reviewed with WOJCIECH Concepcion.
[2019-06-10] MEDS: lactobacillus rhamnosus 10,000 MMU CELLS/CAPSULE PO SCH (19:53)
[2019-06-10] MEDS: sertraline 50mg tablet PO SCH (19:54)
[2019-06-10 20:00] VITALS: BP 147/68
[2019-06-10] MEDS ORDERED: lactulose 20gm/30ml cup PO SCH (20:00)
[2019-06-10] MEDS: insulin glargine (Lantus) pen - multi-dose SQ SCH (20:32)
--- NOTE | 2019-06-10 22:42 | NUR ---
Patient in room [facility]. I have received report from WOJCIECH Louise and had the opportunity to ask questions and assume patient care. Addendum: 06/10/19 at 2243 by Carlene Hartmann RN Amended: Links added.
[2019-06-11 00:47] VITALS: BP 154/65
--- NOTE | 2019-06-11 06:32 | NUR ---
Problems reprioritized. Patient report given, questions answered & plan of care reviewed with WOJCIECH Tirado and WOJCIECH Watson. Addendum: 06/11/19 at 0632 by Carlene Hartmann RN Amended: Links added.
[2019-06-11 08:00] VITALS: BP 144/72
[2019-06-11] MEDS: K and/or MAG REPLACEMENT MC SCH (08:00)
[2019-06-11] MEDS: lactobacillus rhamnosus 10,000 MMU CELLS/CAPSULE PO SCH (09:37)
[2019-06-11] MEDS: aripiprazole 5mg tablet PO SCH (09:37)
[2019-06-11] MEDS: rifaximin 550mg tablet PO SCH (09:37)
[2019-06-11] MEDS: gemfibrozil 600mg tablet PO SCH (09:38)
[2019-06-11] MEDS: tamsulosin 0.4mg capsule PO SCH (09:38)
[2019-06-11] MEDS: spironolactone 25 MG tablet PO SCH (09:38)
[2019-06-11] MEDS: famotidine 20mg tablet PO SCH (09:39)
[2019-06-11] MEDS: gabapentin 300mg capsule PO SCH (09:39)
[2019-06-11] MEDS: memantine 5mg tablet PO SCH (09:39)
[2019-06-11] MEDS: levoTHYROXINE 100mcg tablet PO SCH (09:39)
[2019-06-11] MEDS: lactulose 20gm/30ml cup PO SCH (09:40)
[2019-06-11] MEDS: insulin Lispro (HumaLOG) vial - multi-dose SQ SCH (09:54)
[2019-06-11] MEDS: nystatin 15 GM powder TP SCH (09:56)
[2019-06-11 11:00] VITALS: BP 136/63
--- NOTE | 2019-06-11 19:36 | NUR ---
Patient discharged home into the care of his . Patient all IV's currently in place were removed, patient left with all belongings, was alert, oriented, and stable for discharge. No new meds at discharge and patient was educated to follow up with their primary care provider.
== END 2019-06-11 15:55 | disposition home health service (06) | DRG 377 ==
LOC: ER 14:30 → ED HOLD 17:56 → SUR 3N 19:45 → OBSVTOIN 06-10 09:30
PROVIDERS: ADMIT Family Medicine; ATTEND Internal Medicine
DX: K92.1 Melena (principal); N17.0 Acute kidney failure with tubular necrosis; G93.41 Metabolic encephalopathy; L03.115 Cellulitis of right lower limb; E86.0 Dehydration; D69.59 Other secondary thrombocytopenia; K74.60 Unspecified cirrhosis of liver; B19.20 Unspecified viral hepatitis C without hepatic coma; E03.9 Hypothyroidism, unspecified; E11.9 Type 2 diabetes mellitus without complications; F12.90 Cannabis use, unspecified, uncomplicated; F32.9 Major depressive disorder, single episode, unspecified; F03.90 Unspecified dementia, unspecified severity, without behavioral disturbance, psychotic disturbance, mood disturbance, and anxiety; I10 Essential (primary) hypertension; Z79.84 Long term (current) use of oral hypoglycemic drugs; Z79.899 Other long term (current) drug therapy; Z90.49 Acquired absence of other specified parts of digestive tract; Z88.5 Allergy status to narcotic agent; Z87.891 Personal history of nicotine dependence; K72.90 Hepatic failure, unspecified without coma
CPT/HCPCS: 36415; 71045; 76700; 80053; 82140; 82948; 83036; 83605; 83735; 84145; 85025; 85610; 87040; 87081; 92508; 92616; 93005; 96365; 97161; 97530; 99285; G0378; J0696; J1815; J7030

== ENCOUNTER 2019-08-25 06:23 | Day surgery (SDC) | payer MEDICARE, MEDICAID ==
[~2019-08-25] VITALS: Ht 177.8 cm; Wt 79.5 kg
[~2019-08-25 06:23] MED LIST changes: +AMLO10TA13 PO; -ARIP5TAB14 PO; +ARIP5TAB60 PO; -ASPI-1265 PO; -CALC1CAP4 PO; +CHLO25TA2 PO; -CHOL2000 PO; -DOCU-273 PO; +FURO40TA4 PO; -GLIM4TAB4 PO; +GLIM4TAB7 PO; -INSU100V12 SQ; -LEVO150T PO; +LEVO200T8 PO; -MELA3TAB64 PO; +MEMA5TAB42 PO; -MULT-1085 PO; -NOR5T PO; +RIFA550T PO; +SPIR100T5 PO; -TRAZ-89 PO
[2019-08-25 06:35] VITALS: BP 148/73
[2019-08-25] MEDS ORDERED: MIDAZolam 5mg/5ml vial ONE (06:44)
[2019-08-25] MEDS ORDERED: fentaNYL/PF 50MCG/1 ML 2ML syringe ONE (06:44)
[2019-08-25] MEDS ORDERED: LIDOcaine Viscous 15ml cup ONE (06:44)
[2019-08-25] MEDS ORDERED: LEVO125T PO (07:05)
[2019-08-25] MEDS ORDERED: GEMF600T PO (07:06)
[2019-08-25] MEDS ORDERED: INSU100V12 SQ (07:10)
[2019-08-25] MEDS ORDERED: MULT-1085 PO (07:11)
[2019-08-25] MEDS ORDERED: CALCIUM PO (07:13)
[2019-08-25] MEDS ORDERED: VITAMIN D PO (07:13)
[2019-08-25] MEDS ORDERED: ASCO500C15 PO (07:13)
[2019-08-25 08:20] VITALS: BP 132/80
[2019-08-25 08:30] VITALS: BP 143/81
[2019-08-25 08:40] VITALS: BP 161/80
[2019-08-25 08:50] VITALS: BP 125/69
== END 2019-08-25 09:03 | disposition home or self-care (01) ==
LOC: GI LAB 06:23
PROVIDERS: ATTEND Internal Medicine Gastroenterology
DX: K74.60 Unspecified cirrhosis of liver (principal); I85.00 Esophageal varices without bleeding; K76.6 Portal hypertension; K31.89 Other diseases of stomach and duodenum; K29.50 Unspecified chronic gastritis without bleeding
CPT/HCPCS: 43239; 43244; 82948; G0500; J2250; J3010; J7040; 88305; 99152; A4620